=== PATIENT | female | born 1995 | race Hispanic/Latino ===

== ENCOUNTER 2019-03-18 06:33 | Emergency (ER) | payer SELFPAY ==
[~2019-03-18] VITALS: Ht 157.5 cm; Wt 172.4 kg
[2019-03-18] MEDS ORDERED: ALBUTEROL/IPRATROPIUM 3 ML NEB NEB ONE (08:00)
--- NOTE | 2019-03-18 08:15 | NUR ---
NOTIFIED MANAGER MOLECULAR OF XRAY NOT READ YET.
--- NOTE | 2019-03-18 08:38 | Diagnostic Imaging Report ---
TECHNIQUE: Frontal and lateral views of the chest. INDICATION: ^CHEST PAIN X2.5 HRS ^[id number] ^[id number]. COMPARISON: None. FINDINGS: LINES/TUBES: None. LUNGS: There is likely overlapping soft tissue over the right lower chest. The lungs are well inflated and clear. No consolidation or pulmonary edema. PLEURA: No pleural effusion or pneumothorax. HEART AND MEDIASTINUM: The cardiomediastinal silhouette is within normal limits. SOFT TISSUES AND BONES: Unremarkable. IMPRESSION: No acute cardiopulmonary abnormalities. Signed by: He Bermudez JR, MD on 03/18/2019 8:35 AM
[2019-03-18] MEDS ORDERED: PROAIR HFA INH8.5 GM INH (08:53)
== END 2019-03-18 09:20 | disposition home or self-care (01) ==
LOC: ER 06:33
DX: J45.32 Mild persistent asthma with status asthmaticus (principal)
CPT/HCPCS: 71046; 93005; 94640; 99283

== ENCOUNTER 2020-08-22 11:26 | Emergency (ER) | payer SELFPAY ==
[~2020-08-22] VITALS: Ht 157.5 cm; Wt 172.4 kg
[~2020-08-22 11:26] MED LIST: PROAIR HFA INH8.5 GM INH
[2020-08-22] MEDS ORDERED: ASPIRIN 81 MG CHEW TAB PO ONE (11:45)
[2020-08-22 12:17] LABS: BASOPHILS % 0.3 % (0.0-1.0); EOSINOPHILS # (AUTO) 0.4 (0.0-0.4); EOSINOPHILS % 3.8 % (0.0-6.0); HEMATOCRIT 30.9 % (34.2-44.1); HEMOGLOBIN 8.2 g/dL (12.0-16.0); LYMPHOCYTES # (AUTO) 2.3 (1.0-3.2); LYMPHOCYTES % 19.4 % (18.0-39.1); MEAN CORPUSCULAR HGB CONC 26.5 g/dL (31-35); MEAN CORPUSCULAR VOLUME 64.1 fL (81-99); MONOCYTES % 8.5 % (4.4-11.3); NEUTROPHILS # (AUTO) 7.9 (2.1-6.9); NEUTROPHILS % 67.1 % (38.7-80.0); PLATELET COUNT 441 x10e3/uL (140-360); RED BLOOD COUNT 4.82 x10e6/uL (3.6-5.1); RED CELL DISTRIBUTION WIDTH 21.2 % (11.7-14.4)
[2020-08-22 12:33] LABS: AMPHETAMINES SCREEN,URINE NEGATIVE (NEGATIVE); BENZODIAZEPINES SCREEN,URINE NEGATIVE (NEGATIVE); PHENCYCLIDINE SCREEN,URINE NEGATIVE (NEGATIVE)
[2020-08-22 12:42] LABS: ALANINE AMINOTRANSFERASE 16 IU/L (0-55); ALBUMIN 3.7 g/dL (3.5-5.0); ALBUMIN/GLOBULIN RATIO 0.9 (0.8-2.0); ALKALINE PHOSPHATASE 66 IU/L (40-150); ANION GAP 10.3 mmol/L (8-16); BLOOD UREA NITROGEN 8 mg/dL (7-26); BUN/CREATININE RATIO 10 (6-25); CALCIUM 8.6 mg/dL (8.4-10.2); CARBON DIOXIDE 30 mmol/L (22-29); CHLORIDE 102 mmol/L (98-107); CREATINE KINASE 40 IU/L (29-168); CREATININE, SERUM 0.82 mg/dL (0.57-1.11); EST GLOMERULAR FILTRATION RATE > 60 ML/MIN (60-); GLUCOSE 92 mg/dL (74-118); POTASSIUM 4.3 mmol/L (3.5-5.1); SODIUM 138 mmol/L (136-145)
[2020-08-22] MEDS ORDERED: KETOROLAC TROMETHAMINE 30 MG/ML VIAL IV STA (15:34)
[2020-08-22] MEDS ORDERED: VENTOLIN HFA18 GM INH (15:37)
[2020-08-22] MEDS ORDERED: MOTRIN200 MG PO (15:37)
[2020-08-22] MEDS ORDERED: SODIUM CHLORIDE 0.9% 50ML 50 ML ONE (16:16)
[2020-08-22] MEDS ORDERED: IOPAMIDOL 370 MG/ML 200 ML INFUS..BTL INJ ONE (16:16)
[2020-08-22 16:25] VITALS: BP 125/78
== END 2020-08-22 16:26 | disposition home or self-care (01) ==
LOC: ER 11:37
DX: R07.9 Chest pain, unspecified (principal); R79.1 Abnormal coagulation profile; R06.02 Shortness of breath; J45.909 Unspecified asthma, uncomplicated; Z20.822 Contact with and (suspected) exposure to COVID-19
CPT/HCPCS: 36415; 71045; 71260; 80053; 80307; 81025; 82550; 82553; 83690; 83880; 84484; 85025; 85379; 93005; 99284; J1885; Q9967; U0002

== ENCOUNTER 2022-02-09 02:36 | Emergency (ER) | payer OTHER ==
[~2022-02-09] VITALS: Ht 157.5 cm; Wt 172.4 kg
[~2022-02-09 02:36] MED LIST changes: +MOTRIN200 MG PO; +VENTOLIN HFA18 GM INH
[2022-02-09] MEDS ORDERED: CYCLOBENZAPRINE5 MG PO (02:39)
[2022-02-09] MEDS ORDERED: NAPROSYN500 MG PO (02:39)
[2022-02-09] MEDS ORDERED: MEDROL4 M2 PO (02:43)
== END 2022-02-09 02:57 | disposition home or self-care (01) ==
LOC: ER 02:39
DX: M54.2 Cervicalgia (principal); M25.511 Pain in right shoulder; S46.811A Strain of other muscles, fascia and tendons at shoulder and upper arm level, right arm, initial encounter; X50.0XXA Overexertion from strenuous movement or load, initial encounter; Y92.89 Other specified places as the place of occurrence of the external cause; J45.909 Unspecified asthma, uncomplicated; E66.01 Morbid (severe) obesity due to excess calories; R94.31 Abnormal electrocardiogram [ECG] [EKG]
CPT/HCPCS: 93005; 99284

== ENCOUNTER 2022-04-01 22:17 | Emergency (ER) | payer OTHER ==
[~2022-04-01] VITALS: Ht 157.5 cm; Wt 172.4 kg
[~2022-04-01 22:17] MED LIST changes: +CYCLOBENZAPRINE5 MG PO; +MEDROL4 M2 PO; +NAPROSYN500 MG PO
[2022-04-01] MEDS ORDERED: LIDOCAINE HCL 1% LOCAL INJ 20 ML VIAL INJ ONE (22:45)
[2022-04-01] MEDS ORDERED: CEPHALEXIN500 MG PO (22:54)
[2022-04-01] MEDS ORDERED: BACTRIM DS TAB1 EACH PO (22:54)
[2022-04-01] MEDS ORDERED: ULTRAM 50MG50 MG PO (22:54)
== END 2022-04-01 23:05 | disposition home or self-care (01) ==
LOC: ER 22:39
DX: R50.9 Fever, unspecified (principal); L02.211 Cutaneous abscess of abdominal wall; R10.32 Left lower quadrant pain; J45.909 Unspecified asthma, uncomplicated
CPT/HCPCS: 99282

== ENCOUNTER 2022-06-04 20:44 | Emergency (ER) | payer OTHER ==
[~2022-06-04] VITALS: Ht 157.5 cm; Wt 167.8 kg
[~2022-06-04 20:44] MED LIST changes: +BACTRIM DS TAB1 EACH PO; +CEPHALEXIN500 MG PO; +ULTRAM 50MG50 MG PO
[2022-06-04] MEDS ORDERED: MEDROL4 M2 PO (20:55)
[2022-06-04] MEDS ORDERED: PROVENTIL HFA6.7 GM INH (20:55)
[2022-06-04] MEDS: ALBUTEROL/IPRATROPIUM 3 ML NEB NEB ONE ×2 (21:00→22:01)
== END 2022-06-04 21:51 | disposition home or self-care (01) ==
LOC: ER 20:51
DX: R06.02 Shortness of breath (principal); J45.901 Unspecified asthma with (acute) exacerbation
CPT/HCPCS: 94640; 94799; 99282

== ENCOUNTER 2022-06-25 13:03 | Emergency (ER) | payer OTHER ==
[~2022-06-25] VITALS: Ht 157.5 cm; Wt 167.8 kg
[~2022-06-25 13:03] MED LIST changes: +PROVENTIL HFA6.7 GM INH
[2022-06-25 13:59] LABS: BASOPHILS % 0.2 % (0.0-1.0); EOSINOPHILS # (AUTO) 0.5 (0.0-0.4); EOSINOPHILS % 4.9 % (0.0-6.0); HEMATOCRIT 32.7 % (34.2-44.1); LYMPHOCYTES # (AUTO) 2.4 (1.0-3.2); LYMPHOCYTES % 22.6 % (18.0-39.1); MEAN CORPUSCULAR HEMOGLOBIN 17.9 pg (28-32); MEAN CORPUSCULAR HGB CONC 27.5 g/dL (31-35); MONOCYTES # (AUTO) 0.8 (0.2-0.8); MONOCYTES % 7.4 % (4.4-11.3); NEUTROPHILS # (AUTO) 6.9 (2.1-6.9); NEUTROPHILS % 64.3 % (38.7-80.0); PLATELET COUNT 416 x10e3/uL (140-360); RED BLOOD COUNT 5.03 x10e6/uL (3.6-5.1); RED CELL DISTRIBUTION WIDTH 20.5 % (11.7-14.4)
[2022-06-25 14:15] LABS: ALBUMIN 3.5 g/dL (3.5-5.0); ALBUMIN/GLOBULIN RATIO 0.8 (0.8-2.0); ANION GAP 13.6 mmol/L (8-16); CALCIUM 9.2 mg/dL (8.4-10.2); CREATININE, SERUM 1.06 mg/dL (0.57-1.11); POTASSIUM 3.6 mmol/L (3.5-5.1)
== END 2022-06-25 19:07 | disposition home or self-care (01) ==
LOC: ER 13:31
DX: M79.605 Pain in left leg (principal); M79.604 Pain in right leg; M79.89 Other specified soft tissue disorders; D64.9 Anemia, unspecified
CPT/HCPCS: 36415; 80053; 85025; 99284